=== PATIENT | female | born 1965 | race Caucasian/White ===

== ENCOUNTER 2017-01-17 10:20 | Emergency (ER) | payer OTHER ==
[2017-01-17 11:30] LABS: BILIRUBIN,URINE NEGATIVE (NEGATIVE)
[2017-01-17 11:32] LABS: UA CHARGE (STRIP ONLY) YES; UR CULTURE IF IND NOT INDICATED
[2017-01-17 11:38] LABS: CREATININE 0.8 mg/dL (0.4-1.0); POTASSIUM 3.7 mmol/L (3.5-5.0)
[2017-01-17 12:18] VITALS: BP 152/110
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
== END 2017-01-17 12:30 | disposition home or self-care (01) ==
LOC: ED 10:20
DX: I10 Essential (primary) hypertension (principal)
CPT/HCPCS: 36415; 80048; 81001; 81003; 87086; 99283

== ENCOUNTER 2018-12-03 13:40 | Outpatient (CLI) | payer BC ==
--- NOTE | 2018-12-03 14:18 | XRAY Report ---
Reason: FINGER PAIN,RIGHT Procedure Date: 12/03/2018 Accession Number: [id number] / [id number] Procedure: WCP - Finger(s) RT CPT Code: FULL RESULT: EXAM: RIGHT THIRD DIGIT RADIOGRAPHY EXAM DATE: 12/03/2018 01:55 PM. CLINICAL HISTORY: Finger pain, right. COMPARISON: None. TECHNIQUE: 3 views. FINDINGS: Bones: Comminuted fracture of the proximal aspect of the distal third phalanx with intraarticular extension. Joints: Normal. No subluxations. Soft Tissues: Soft tissue swelling over the dorsal aspect of the distal third ray which extends to the nail bed. IMPRESSION: Comminuted intraarticular fracture of the proximal aspect of the distal third phalanx. Treat as open fracture given the proximity to nail bed. RADIA
== END 2018-12-03 13:41 | disposition home or self-care (01) ==
LOC: DI.WCP 13:40
PROVIDERS: ATTEND Physician Assistant Medical
DX: S62.632A Displaced fracture of distal phalanx of right middle finger, initial encounter for closed fracture (principal)
CPT/HCPCS: 73140

== ENCOUNTER 2019-03-11 14:12 | Outpatient (CLI) | payer BC ==
--- NOTE | 2019-03-12 13:42 | XRAY Report ---
Reason: L FOOT PAIN Procedure Date: 03/11/2019 Accession Number: [id number] / [id number] Procedure: XR - Foot 3 View LT CPT Code: FULL RESULT: EXAM: LEFT FOOT RADIOGRAPHY EXAM DATE: 03/11/2019 02:30 PM. CLINICAL HISTORY: Left foot pain since August. COMPARISON: FOOT 3 VIEW LT 04/08/2014 1:38 PM. TECHNIQUE: 3 views. FINDINGS: Bones: Stable small plantar calcaneal spur. No fractures or bone lesions. Joints: Very mild degenerative disease redemonstrated. No subluxations. Soft Tissues: Normal. No soft tissue swelling. IMPRESSION: No acute abnormality or significant interval change. RADIA
== END 2019-03-11 14:13 | disposition home or self-care (01) ==
LOC: DI 14:12
PROVIDERS: ATTEND Podiatrist
DX: M79.672 Pain in left foot (principal)

== ENCOUNTER 2019-12-23 07:58 | Outpatient (CLI) | payer BC | END 2019-12-23 07:59 | disposition short-term general hospital (02) | LOC: EMS 07:58 | PROVIDERS: ATTEND Surgery | DX: R10.31 Right lower quadrant pain (principal); R10.11 Right upper quadrant pain; R11.0 Nausea | CPT/HCPCS: A0425; A0429 ==

== ENCOUNTER 2019-12-30 14:06 | Outpatient (CLI) | payer BC ==
[2019-12-30 14:40] LABS: ABNORMAL LYMPHS % (MANUAL) 0 %; BAND NEUTROPHILS % (MANUAL) 0 %
[2019-12-30 19:02] LABS: BASOPHILS % (AUTO) 0.7 %; EOSINOPHILS % (AUTO) 3.3 %; HGB - HEMOGLOBIN 13.5 g/dL (12.0-16.0); MEAN CORPUSCULAR HEMOGLOBIN 29.2 pg (27.0-31.0); MEAN CORPUSCULAR HGB CONC 32.5 g/dL (32.0-36.0); MEAN CORPUSCULAR VOLUME 89.8 fL (81.0-99.0); MEAN PLATELET VOLUME 12.1 fL (7.9-10.8); MONOCYTES % (AUTO) 4.8 %; NEUTROPHILS % (AUTO) 61.7 %; PLT - PLATELET COUNT 264 10^3/uL (130-450); RED BLOOD COUNT 4.63 10^6/uL (4.20-5.40); RED CELL DISTRIBUTION WIDTH 13.9 % (12.0-15.0)
[2019-12-30 19:09] LABS: ALBUMIN/GLOBULIN RATIO 1.7 (1.0-2.2); BILIRUBIN,TOTAL 0.6 mg/dL (0.2-1.0); CALCIUM 9.1 mg/dL (8.5-10.3); CREATININE 0.7 mg/dL (0.4-1.0); TOTAL PROTEIN 6.4 g/dL (6.7-8.2)
[2019-12-30 20:13] LABS: BASOPHILS # (MANUAL) 0.1 10^3/uL (0-0.1); BASOPHILS % (MANUAL) 1 %; EOSINOPHILS # (MANUAL) 0.4 10^3/uL (0-0.7); LYMPHOCYTES % (MANUAL) 23 %; MONOCYTES # (MANUAL) 0.6 10^3/uL (0.0-1.0); RBC MORPHOLOGY (MULTIPLE) NORMAL APPEARANCE (NORMAL)
[2019-12-30 20:14] LABS: DIFFERENTIAL COMMENT MANUAL DIFFERENTIAL; PLATELET ESTIMATE, MANUAL NORMAL (130-450,000) (NORMAL); PLATELET MORPHOLOGY NORMAL APPEARANCE (NORMAL)
[2019-12-30 20:16] LABS: WHITE BLOOD COUNT 8.9 x10^3/uL (4.8-10.8)
== END 2019-12-30 23:59 | disposition home or self-care (01) ==
LOC: LAB.WCP 14:06
PROVIDERS: ATTEND Family Medicine
DX: R10.11 Right upper quadrant pain (principal); R16.1 Splenomegaly, not elsewhere classified
CPT/HCPCS: 36415; 80053; 85025

== ENCOUNTER 2020-01-03 07:53 | Outpatient (CLI) | payer BC ==
--- NOTE | 2020-01-04 10:56 | Ultrasound Report ---
PROCEDURE: Abdomen Complete INDICATIONS: RUQ ABD PX, SPLENOMEGALY TECHNIQUE: Real-time scanning was performed of the abdominal and retroperitoneal organs, with image documentatio n. COMPARISON: CT of the abdomen dated 11/07/2007, ultrasound of abdomen dated 11/07/2007. FINDINGS: Liver: Liver is enlarged and measures 21.7 cm in length. Heterogeneous liver parenchymal echotexture is seen. No discrete hepatic lesion. Gallbladder: Mobile and an echogenic focus is seen in dependent portion of gallbladder lumen measures 3 x 1.5 cm in size. No gross gallbladder wall thickening or pericholecystic fluid. No sonographic Mu rphy's sign. Biliary ducts: Intrahepatic bile ducts are non-dilated. Extrahepatic bile duct caliber measures 5 m m. Normal is 6-7 mm or less in diameter, or 10 mm or less post-cholecystectomy. Pancreas: Visualized portions of the pancreas are sonographically normal. Spleen: Spleen is mildly enlarged and measures 13 cm in length. No discrete splenic lesion is seen. Kidneys: Kidneys are normal in size and echotexture. Right kidney measures 10.5 cm long; left kidne y measures 11.9 cm long. No hydronephrosis or nephrolithiasis. No solid masses. 1.4 x 1.2 x 1.1 cm cyst is seen in the lower pole of left kidney. Aorta: Visualized aorta is normal in caliber at less than 3 cm. Iliacs: Proximal common iliac arteries are normal in caliber at less than 2.5 cm. IVC: Intrahepatic inferior vena cava is patent. Miscellaneous: No free abdominal fluid. IMPRESSION: 1. Hepatosplenomegaly. Echogenic liver parenchyma suggestive of hepatic steatosis. No discrete hepati c or splenic lesion. 2. Cholelithiasis, no sonographic evidence of acute cholecystitis. No biliary ductal dilatation. 3. Lower pole left renal cyst. No nephrolithiasis or hydronephrosis. Reviewed by: Mando Lopez MD on 01/04/2020 10:54 AM PDT Approved by: Mando Lopez MD on 01/04/2020 10:54 AM PDT Station ID: [id number]
== END 2020-01-03 07:54 | disposition home or self-care (01) ==
LOC: DI 07:53
PROVIDERS: ATTEND Family Medicine
DX: R16.2 Hepatomegaly with splenomegaly, not elsewhere classified (principal); K80.20 Calculus of gallbladder without cholecystitis without obstruction; N28.1 Cyst of kidney, acquired
CPT/HCPCS: 76700

== ENCOUNTER 2020-03-20 13:58 | Outpatient (CLI) | payer BC ==
--- NOTE | 2020-03-23 12:57 | Mammography Report ---
BILATERAL DIGITAL SCREENING MAMMOGRAM 3D/2D: 03/20/2020 CLINICAL: Routine screening. Comparison is made to exams dated: 06/23/2012 mammogram, 01/23/2011 mammogram, and 09/08/2009 mammogra m - [facility]. There are scattered fibroglandular elements in both breasts. No significant masses, calcifications, or other findings are seen in either breast. There has been no significant interval change. IMPRESSION: NEGATIVE There is no mammographic evidence of malignancy. A 1 year screening mammogram is recommended. This exam was interpreted at Station ID: [id number]. NOTE: For mammograms, a report in lay terms will be sent to the patient. Approximately 15% of breast malignancies will not be visualized mammographically. In the management of a palpable breast mass, a negative mammogram must not discourage biopsy of a clinically suspicious lesion. Electronically Signed By: Malachi Campbell M.D., jr/bee:03/23/2020 11:20:30 ACR BI-RADS Category 1: Negative 3341F PARENCHYMAL PATTERN: (A) - The breast(s) demonstrate(s) scattered fibroglandular densities. BI-RADS CATEGORY: (1) - 1 RECOMMENDATION: (ANNUAL) - Recommend routine annual screening mammography. [id number] 1 year screening LATERALITY: (B)
== END 2020-03-20 13:59 | disposition home or self-care (01) ==
LOC: DI 13:58
PROVIDERS: ATTEND Internal Medicine
DX: Z12.31 Encounter for screening mammogram for malignant neoplasm of breast (principal)
CPT/HCPCS: 77063; 77067

== ENCOUNTER 2022-04-11 03:19 | Outpatient (CLI) | payer BC | END 2022-04-11 03:20 | disposition critical access hospital (66) | LOC: EMS 03:19 | DX: M54.50 Low back pain, unspecified (principal); X50.9XXA Other and unspecified overexertion or strenuous movements or postures, initial encounter | CPT/HCPCS: A0425; A0429 ==

== ENCOUNTER 2022-04-11 03:29 | Emergency (ER) | payer BC ==
[2022-04-11] MEDS ORDERED: methocarbamoL 500 MG TABLET PO STA (04:12)
[2022-04-11] MEDS ORDERED: KETOROLAC 60 MG/2 ML VIAL IM STA (04:12)
--- NOTE | 2022-04-11 04:17 | ED Physician Documentation ---
History of Present Illness - Stated complaint Stated Complaint: BACK PAIN - Chief complaint Chief Complaint: Back Pain - History obtained from History obtained from: Patient - Additonal information Additional information: 36-year-old woman with past medical history of back injury 20 years ago, now healed, presents with left lower back spasm sudden onsetWhile walking with two 4 pound containers down some stairs on Saturday. Patient has had progressive worsening of her back pain despite trying multiple therapies and has been unable to sleep tonight.She states that she is not experiencing any numbness or weakness nor saddle anesthesia however she did get up to try to go to the bathroom and experienced so much pain that she lost control of her urinary bladder. denies midline back pain. pain is spasmodic, constant, located in left lower back, sudden onset, nonradiating, worse with any movement. 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: 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 - Present Medications Home Medications: Ambulatory Orders Medication Instructions Recorded Confirmed SUMAtriptan succinate [Sumatriptan 100 mg PO PRN 01/17/17 Succinate] Ketorolac [Toradol] 10 mg PO Q6H PRN #30 tablet 04/11/22 methocarbamoL [Robaxin] 500 mg PO Q6H #30 tablet 04/11/22 - Allergies Allergies/Adverse Reactions: Allergies Allergy/AdvReac Type Severity Reaction Status Date / Time codeine Allergy Unknown Verified 01/17/17 10:27 morphine Allergy Respiratory Verified 01/17/17 10:27 - Social History Does the pt smoke?: No Smoking Status: Never smoker Does the pt drink ETOH?: No Does the pt have substance abuse?: No - Immunizations Immunizations are current?: No - POLST Patient has POLST: No PD ED PE NORMAL - Vitals Vital signs reviewed: Yes - General General: Alert and oriented X 3, Other (uncomfortable appearing) - HEENT HEENT: Atraumatic, PERRL, EOMI - Neck Neck: No bony TTP - Back Back: No spinal TTP, Other (L lower back discomfort to palpation in muscular distribution) - Derm Derm: Normal color, Warm and dry - Extremities Extremities: Other (BL DP and PT pulses intact. nromal sensation and movement) - Neuro Neuro: No motor deficit, No sensory deficit - Psych Psych: Normal mood, Normal affect Results - Vitals Vitals: Vital Signs - 24 hr 04/11/22 04/11/22 04/11/22 03:37 03:41 03:45 Temperature 37.3 C Heart Rate 76 77 Respiratory 19 19 18 Rate Blood Pressure 186/99 H O2 Saturation 98 98 04/11/22 04/11/22 04/11/22 04:11 05:04 05:08 Temperature Heart Rate 77 68 Respiratory 19 Rate Blood Pressure 176/91 H O2 Saturation 99 95 04/11/22 05:32 Temperature Heart Rate 67 Respiratory 15 Rate Blood Pressure O2 Saturation 98 Oxygen O2 Source Room air PD MEDICAL DECISION MAKING - ED course ED course: 56-year-old woman presents with left lower back strain. Will attempt symptomatic treatment and reevaluate. Departure - Departure Disposition: 01 Home, Self Care Clinical Impression: Back pain Condition: Stable Instructions: ED Low Back Pain Injury Prescriptions: methocarbamoL [Robaxin] 500 mg PO Q6H #30 tablet Ketorolac [Toradol] 10 mg PO Q6H PRN #30 tablet PRN Reason: Pain Comments: You were seen in the emergency department for lower back strain. I am prescribing Robaxin and Toradol and she can take as needed. Remember not to take Toradol with other NSAIDs (aspirin ibuprofen Advil Aleve). Return to the emergency department if you have any new or worsening symptoms or other concerns. Follow-up with your primary doctor.
[2022-04-11 06:23] VITALS: BP 170/88
== END 2022-04-11 06:23 | disposition home or self-care (01) ==
LOC: EDUNIT# → ED 03:29
DX: M54.50 Low back pain, unspecified (principal)
CPT/HCPCS: 96372; 99282; 99283; A9270

== ENCOUNTER 2022-04-24 08:19 | Outpatient (CLI) | payer BC ==
--- NOTE | 2022-04-25 09:09 | Mammography Report ---
BILATERAL DIGITAL SCREENING MAMMOGRAM 3D/2D: 04/24/2022 CLINICAL: Routine screening. Comparison is made to exam dated: 03/20/2020 mammogram - [facility]. There are scattered areas of fibroglandular density in both breasts (category b / 25%-50% glandular t issue). There is a focal asymmetry with an indistinct margin in the left breast at 12 o'clock anterior depth. This is more prominent. There is architectural distortion associated with the focal asymmetry. No other significant masses, calcifications, or other findings are seen in either breast. IMPRESSION: INCOMPLETE: NEEDS ADDITIONAL IMAGING EVALUATION The focal asymmetry in the left breast is indeterminate. Additional views with possible ultrasound are recommended. Based on the Tyrer Cuzick model (a risk assessment model) the patients lifetime risk is 5.7% and her 10 year risk is 1.7%. According to the ACR, ACS, and NCCN guidelines, an annual breast MRI exam javon g with mammogram is recommended if the patients lifetime risk is 20% or greater. This exam was interpreted at Station ID: [id number]. NOTE: For mammograms, a report in lay terms will be sent to the patient. Approximately 15% of breast malignancies will not be visualized mammographically. In the management of a palpable breast mass, a negative mammogram must not discourage biopsy of a clinically suspicious lesion. Electronically Signed By: Akhil Zelaya M.D. slc/:04/24/2022 16:32:54 ACR BI-RADS Category 0: Incomplete 3340F PARENCHYMAL PATTERN: (A) - The breast(s) demonstrate(s) scattered fibroglandular densities. BI-RADS CATEGORY: (0) - 0 Mammo and [place] [id number] Immediate follow-up LATERALITY: (B)
== END 2022-04-24 08:20 | disposition home or self-care (01) ==
LOC: DI 08:19
PROVIDERS: ATTEND Internal Medicine
DX: Z12.31 Encounter for screening mammogram for malignant neoplasm of breast (principal); R92.8 Other abnormal and inconclusive findings on diagnostic imaging of breast

== ENCOUNTER 2022-05-02 09:02 | Outpatient (CLI) | payer BC ==
[2022-05-02 09:15] LABS: BASOPHILS # (AUTO) 0.1 10^3/uL (0.0-0.1); BASOPHILS % (AUTO) 0.7 %; EOSINOPHILS # (AUTO) 0.4 10^3/uL (0.0-0.7); EOSINOPHILS % (AUTO) 4.2 %; HCT - HEMATOCRIT 44.9 % (37.0-47.0); HGB - HEMOGLOBIN 14.2 g/dL (12.0-16.0); LYMPHOCYTES # (AUTO) 2.2 10^3/uL (1.5-3.5); LYMPHOCYTES % (AUTO) 26.8 %; MEAN CORPUSCULAR HEMOGLOBIN 28.1 pg (27.0-31.0); MEAN CORPUSCULAR HGB CONC 31.6 g/dL (32.0-36.0); MEAN CORPUSCULAR VOLUME 88.9 fL (81.0-99.0); MEAN PLATELET VOLUME 11.1 fL (7.9-10.8); MONOCYTES # (AUTO) 0.5 10^3/uL (0.0-1.0); MONOCYTES % (AUTO) 5.5 %; NEUTROPHILS # (AUTO) 5.2 10^3/uL (1.5-6.6); NEUTROPHILS % (AUTO) 62.6 %; PLT - PLATELET COUNT 269 10^3/uL (130-450); RED BLOOD COUNT 5.05 10^6/uL (4.20-5.40); RED CELL DISTRIBUTION WIDTH 13.5 % (12.0-15.0); WHITE BLOOD COUNT 8.3 x10^3/uL (4.8-10.8)
[2022-05-02 09:34] LABS: CREATININE,URINE 86.7 mg/dL; MICROALBUM/CREATININE RATIO,UR 21.9 ug/mg (<30.0); MICROALBUMIN,URINE 1.9 mg/dL (0-300.0)
[2022-05-02 09:50] LABS: ALBUMIN 4.1 g/dL (3.2-5.5); ALBUMIN/GLOBULIN RATIO 1.4 (1.0-2.2); ALKALINE PHOSPHATASE 75 IU/L (42-121); ALT ALANINE AMINOTRANSFERASE 25 IU/L (10-60); AST ASPARTATE AMINOTRANSFERASE 23 IU/L (10-42); BILIRUBIN,TOTAL 0.9 mg/dL (0.2-1.0); BUN - BLOOD UREA NITROGEN 12 mg/dL (6-20); CALCIUM 9.3 mg/dL (8.5-10.3); CARBON DIOXIDE - CO2 32 mmol/L (21-32); CHLORIDE 103 mmol/L (101-111); CHOL/HDL RATIO 4.3 (<4.4); CHOLESTEROL 252 mg/dL; CREATININE 0.7 mg/dL (0.4-1.0); GFR - MDRD 87 (>89); GLUCOSE 95 mg/dL (70-100); HDL CHOLESTEROL 58 mg/dL; LDL CHOLESTEROL,CALCULATED 167 mg/dL; LDL/HDL RATIO 2.9 (<4.4); POTASSIUM 3.7 mmol/L (3.5-5.0); SODIUM 142 mmol/L (135-145); TOTAL PROTEIN 7.1 g/dL (6.7-8.2); TRIGLYCERIDES 136 mg/dL; VLDL CHOLESTEROL 27 mg/dL
[2022-05-02 09:56] LABS: THYROID STIMULATING HORMONE 1.37 uIU/mL (0.34-5.60)
[2022-05-02 10:24] LABS: FOLLICLE STIMULATING HORMONE 25.63 mIU/mL
[2022-05-02 10:25] LABS: LUTEINIZING HORMONE 14.03 mIU/mL
[2022-05-02 12:18] LABS: ESTIMATED AVERAGE GLUCOSE 108 mg/dL (70-100); HEMOGLOBIN A1c% 5.4 % (4.27-6.07)
== END 2022-05-02 09:03 | disposition home or self-care (01) ==
LOC: LAB 09:02
PROVIDERS: ATTEND Internal Medicine
DX: E04.1 Nontoxic single thyroid nodule (principal); G43.909 Migraine, unspecified, not intractable, without status migrainosus; R73.01 Impaired fasting glucose; Z13.220 Encounter for screening for lipoid disorders; Z78.0 Asymptomatic menopausal state
CPT/HCPCS: 36415; 80053; 80061; 82043; 82570; 83001; 83002; 83036; 83721; 84443; 85025

== ENCOUNTER 2022-05-11 12:29 | Outpatient (CLI) | payer BC ==
--- NOTE | 2022-05-14 09:39 | Ultrasound Report ---
LIMITED ULTRASOUND OF LEFT BREAST: 05/11/2022 CLINICAL: Patient returns today to evaluate a focal asymmetry in the left breast. Comparison is made to exams dated: 05/11/2022 mammogram, 04/24/2022 mammogram, 03/20/2020 mammogram, 1 08/24/2011 mammogram, 01/23/2011 mammogram, and 09/08/2009 mammogram - [facility]. Color flow and real-time ultrasound of the left breast 12 o'clock region were performed on the areas of interest. Hawk scale images of the real-time examination were reviewed. There focal asymmetry in the left breast at 12 o'clock is not seen by ultrasound. This is more consp icuous than on prior mammograms. IMPRESSION: SUSPICIOUS OF MALIGNANCY Focal asymmetry in the left breast, increased in prominence from prior exams. Stereotactic biopsy re commended. This was discussed with the patient by the radiologist Dr. Josue at the time of the study. This exam was interpreted at Station ID: [id number]. Electronically Signed By: Alisia Egan M.D. lk/:05/11/2022 14:29:01 Ultrasound BI-RADS: 4a Low suspicion for malignancy BI-RADS CATEGORY: (4a) - Low Susp Biopsy follow-up [id number] Immediate follow-up LATERALITY: (B)
--- NOTE | 2022-05-14 09:39 | Mammography Report ---
UNILATERAL LEFT DIGITAL DIAGNOSTIC MAMMOGRAM 3D/2D WITH SPOT COMPRESSION: 05/11/2022 CLINICAL: Patient returns today to evaluate a focal asymmetry in the left breast. Comparison is made to exams dated: 04/24/2022 mammogram, 03/20/2020 mammogram, 06/23/2012 mammogram, mammogram, and 01/23/2011 mammogram - [facility]. There are scattered areas of fibroglandular density in the left breast (category b / 25%-50% glandula r tissue). There is a focal asymmetry in the left breast at 12 o'clock anterior depth. There is architectural d istortion associated with the focal asymmetry. No other significant masses or calcifications are seen in the breast. IMPRESSION: INCOMPLETE: NEEDS ADDITIONAL IMAGING EVALUATION The focal asymmetry in the left breast is indeterminate. A targeted ultrasound of the left breast is recommended and will be performed immediately following this exam. Based on the Tyrer Cuzick model (a risk assessment model) the patients lifetime risk is 5.7% and her 10 year risk is 1.7%. According to the ACR, ACS, and NCCN guidelines, an annual breast MRI exam javon g with mammogram is recommended if the patients lifetime risk is 20% or greater. This exam was interpreted at Station ID: [id number]. NOTE: For mammograms, a report in lay terms will be sent to the patient. Approximately 15% of breast malignancies will not be visualized mammographically. In the management of a palpable breast mass, a negative mammogram must not discourage biopsy of a clinically suspicious lesion. Electronically Signed By: Alisia trinidad/:05/11/2022 14:19:10 ACR BI-RADS Category 0: Incomplete 3340F PARENCHYMAL PATTERN: (A) - The breast(s) demonstrate(s) scattered fibroglandular densities. BI-RADS CATEGORY: (0) - 0 Ultrasound [id number] Immediate follow-up LATERALITY: (B)
== END 2022-05-11 12:30 | disposition home or self-care (01) ==
LOC: DI 12:29
PROVIDERS: ATTEND Internal Medicine
DX: R92.8 Other abnormal and inconclusive findings on diagnostic imaging of breast (principal)

== ENCOUNTER 2022-05-29 08:20 | Outpatient (CLI) | payer BC ==
[~2022-05-29 08:20] MED LIST: LIDOCAINE 1%-EPI 1:100000 20 ML MDV ONE; lidocaine 1% 20 ML MDV ONE
[2022-05-29] MEDS ORDERED: lidocaine 1% 20 ML MDV SUBQ ONE (10:44)
[2022-05-29] MEDS ORDERED: LIDOCAINE 1%-EPI 1:100000 20 ML MDV SUBQ ONE (10:48)
--- NOTE | 2022-06-04 10:08 | Mammography Report ---
DIGITAL TOMOGRAPHIC MAMMOGRAPHY GUIDED STEREOTACTIC GUIDED BIOPSY LEFT BREAST USING VACUUM DEVICE WIT H MARKING DEVICE INSERTED: 05/29/2022 CLINICAL: Post left breast stereotactic biopsy, clip placement imaging. Correlation is made to exams dated: 05/11/2022 mammogram, 04/24/2022 mammogram, 03/20/2020 mammogram, 06/23/2012 mammogram, and 01/23/2011 mammogram - [facility]. A stereotactic guided biopsy was performed for the focal asymmetry located in the left breast at 12 o 'clock anterior depth. This was described on the previous mammography report. The skin was prepped in the usual manner. Local anesthetic was administered to the access site. A s mall incision was made in the breast. The abnormality was approached from the craniocaudal aspect us ing an upright digital tomographic mammography unit. A 9 gauge biopsy needle was placed adjacent to the abnormality under computer guidance and confirmatory stereotactic mammography images were obtaine d to document needle placement. Once the needle was documented to be in the correct location, a spec imen was obtained using a vacuum assisted device. A clip was inserted into the biopsy cavity. A skin closure strip and a sterile dressing were applied to the access site. Post procedure imaging demonstrates the location device at the targeted area. The specimen was sent to the laboratory for pathological analysis. IMPRESSION: STEREOTACTIC GUIDED BIOPSY BENIGN Stereotactic guided biopsy of the focal asymmetry in the left breast at 12 o'clock anterior depth was successful with no apparent post procedure complications. Pathology indicates benign fibrofatty breast tissue. Pathology results are concordant with imaging f indings. A follow-up mammogram in 6 months is recommended. This exam was interpreted at Station ID: [id number]. Malachi Zelaya M.D., jr,slc/:06/04/2022 08:20:53 BI-RADS CATEGORY: () - Mammogram [id number] 6 month follow-up LATERALITY: (B)
== END 2022-05-29 08:21 | disposition home or self-care (01) ==
LOC: DI 08:20
PROVIDERS: ATTEND Internal Medicine
DX: R92.8 Other abnormal and inconclusive findings on diagnostic imaging of breast (principal)
CPT/HCPCS: 19081

== ENCOUNTER 2022-07-06 17:11 | Outpatient (CLI) | payer BC ==
--- NOTE | 2022-07-06 18:12 | Ultrasound Report ---
PROCEDURE: Head or Neck Soft Tissue INDICATIONS: THYROID NODULE TECHNIQUE: Real-time scanning was performed of the thyroid gland, with image documentation. COMPARISON: 01/17/2016 FINDINGS: Right: Thyroid lobe measures 5.6 x 2.1 x 2.6 cm, and is heterogeneous in echotexture. Left: Thyroid lobe measures 3.9 x 1 x 1.3 cm, and is heterogeneous in echotexture. Isthmus: 2 mm thick. Nodule number: One Location: Upper to midpole right thyroid lobe Size: 3.6 x 2 x 2.5 cm, previously 3.5 x 2.3 x 1.9 cm. Composition: Mixed solid, cystic and spongiform. Echogenicity: Isoechoic Shape: wider than tall. Margins: Smooth Echogenic foci: Macrocalcifications are seen. Total points: 4 ACR TI-RADS category: Moderately suspicious Nodule number: Two Location: Upper pole left thyroid lobe Size: 0.5 cm. New since previous study Composition: Solid Echogenicity: Hypoechoic Shape: wider than tall. Margins: Smooth Echogenic foci: None Total points: 4 ACR TI-RADS category: Moderately suspicious. Benign-appearing lymph nodes are seen in bilateral neck soft tissue. IMPRESSION: 1. Patient's known heterogeneous echotexture nodule in right thyroid lobe is unchanged in size and ap pearance. Consider fine-needle aspiration of this nodule based on the size if not previously performe d. 2. Interval development of a 5 mm moderately suspicious nodule in upper pole of left thyroid lobe. Ul trasound follow-up is recommended. ACR TI-RADS definitions and recommendations: TI-RADS 1 (benign): 0 points. FNA not needed. TI-RADS 2 (not suspicious): 2 points. FNA not needed. TI-RADS 3 (mildly suspicious): 3 points. "FNA if 2.5 cm or larger, follow up if 1.5 cm or larger (at 1, 3, and 5 years). TI-RADS 4 (moderately suspicious): 4-6 points. "FNA if 1.5 cm or larger, follow up if 1 cm or larger (at 1, 2, 3, and 5 years). TI-RADS 5 (highly suspicious): 7 points or more. "FNA if 1 cm or larger, follow up if 0.5 cm or larger (every year for 5 years). Reviewed by: Mando Steve MD on 07/06/2022 6:10 PM PST Approved by: Mando Steve MD on 07/06/2022 6:10 PM PST Station ID: [id number]
== END 2022-07-06 17:12 | disposition home or self-care (01) ==
LOC: DI 17:11
PROVIDERS: ATTEND Internal Medicine
DX: E04.2 Nontoxic multinodular goiter (principal)

== ENCOUNTER 2022-12-19 08:18 | Outpatient (CLI) | payer BC ==
--- NOTE | 2022-12-20 10:54 | Mammography Report ---
UNILATERAL LEFT DIGITAL DIAGNOSTIC MAMMOGRAM 3D/2D: 12/19/2022 CLINICAL: Patient returns for a 6 month follow up of the left breast. Comparison is made to exams dated: 05/29/2022 stereotactic biopsy, 05/11/2022 mammogram, 04/24/2022 mammogram, and 03/20/2020 mammogram - [facility]. There are scattered areas of fibroglandular density in the left breast (category b / 25%-50% glandula r tissue). There is developing architectural distortion in the left breast central to the nipple anterior depth. This is more prominent. No other significant masses or calcifications are seen in the breast. IMPRESSION: INCOMPLETE: NEEDS ADDITIONAL IMAGING EVALUATION The developing architectural distortion in the left breast is indeterminate. An ultrasound is recomm ended. Based on the Tyrer Cuzick model (a risk assessment model) the patients lifetime risk is 5.7% and her 10 year risk is 1.8%. According to the ACR, ACS, and NCCN guidelines, an annual breast MRI exam javon g with mammogram is recommended if the patients lifetime risk is 20% or greater. This exam was interpreted at Station ID: [id number]. NOTE: For mammograms, a report in lay terms will be sent to the patient. Approximately 15% of breast malignancies will not be visualized mammographically. In the management of a palpable breast mass, a negative mammogram must not discourage biopsy of a clinically suspicious lesion. Electronically Signed By: Renato Morris M.D. lc/:12/19/2022 09:26:40 ACR BI-RADS Category 0: Incomplete 3340F PARENCHYMAL PATTERN: (A) - The breast(s) demonstrate(s) scattered fibroglandular densities. BI-RADS CATEGORY: (0) - 0 Ultrasound [id number] Immediate follow-up LATERALITY: (B)
--- NOTE | 2022-12-20 10:54 | Ultrasound Report ---
LIMITED ULTRASOUND OF LEFT BREAST AND AXILLA: 12/19/2022 CLINICAL: Patient returns today to evaluate an asymmetry in the left breast. Comparison is made to exams dated: 12/19/2022 mammogram, 05/29/2022 stereotactic biopsy, 05/11/2022 ul trasound, 05/11/2022 mammogram, 04/24/2022 mammogram, and 03/20/2020 mammogram - [facility]. Color flow ultrasound of the left breast 1-3 o'clock, and axilla regions was performed. Hawk scale images of the real-time examination were reviewed. There is a 0.9 cm x 0.8 cm x 0.9 cm irregular mass with a spiculated margin in the left breast at 3 o 'clock anterior depth 3 cm from the nipple. This abnormality is more prominent and correlates with m ammography findings. There is associated architectural distortion. No significant abnormalities were seen sonographically in the left axilla. IMPRESSION: HIGHLY SUGGESTIVE OF MALIGNANCY The 0.9 cm x 0.8 cm x 0.9 cm irregular mass in the left breast is highly suggestive of malignancy. A n ultrasound guided biopsy is recommended. No significant abnormalities were seen sonographically in the left axilla. This exam was interpreted at Station ID: [id number]. Electronically Signed By: Renato Morris M.D. lc/:12/19/2022 09:29:08 Ultrasound BI-RADS: 5 Highly suggestive of malignancy BI-RADS CATEGORY: (5) - 5 Biopsy follow-up [id number] Immediate follow-up LATERALITY: (B)
== END 2022-12-19 08:19 | disposition home or self-care (01) ==
LOC: DI 08:18
PROVIDERS: ATTEND Internal Medicine
DX: N63.25 Unspecified lump in the left breast, overlapping quadrants (principal)

== ENCOUNTER 2022-12-27 12:52 | Outpatient (CLI) | payer BC ==
[2022-12-27] MEDS ORDERED: LIDOCAINE 1%-EPI 1:100000 20 ML MDV ONE (13:10)
[2022-12-27] MEDS ORDERED: LIDOCAINE-MPF 1% 5 ML VIAL ONE (13:10)
[2022-12-27] MEDS ORDERED: LIDOCAINE-MPF 1% 5 ML VIAL TD ONE (14:31)
[2022-12-27] MEDS ORDERED: LIDOCAINE 1%-EPI 1:100000 20 ML MDV SUBQ ONE (14:32)
--- NOTE | 2022-12-28 11:30 | Mammography Report ---
UNILATERAL LEFT DIGITAL DIAGNOSTIC MAMMOGRAM POST-PROCEDURE IMAGING FOR MARKER PLACEMENT: 12/27/2022 CLINICAL: Post left breast ultrasound biopsy clip placement imaging. Comparison is made to exams dated: 12/19/2022 mammogram, 05/29/2022 stereotactic biopsy, 05/11/2022 ma mmogram, 04/24/2022 mammogram, 03/20/2020 mammogram, and 06/23/2012 mammogram - [facility]. There are scattered areas of fibroglandular density in the left breast (category b / 25%-50% glandula r tissue). There is a marker clip in the appropriate position in the left breast at 3 o'clock anterior depth. T his marker clip placement is at the biopsy site. IMPRESSION: POST PROCEDURE MAMMOGRAM FOR MARKER PLACEMENT There was a successful marker clip placement in the left breast anterior depth. Based on the Tyrer Cuzick model (a risk assessment model) the patients lifetime risk is 5.7% and her 10 year risk is 1.8%. According to the ACR, ACS, and NCCN guidelines, an annual breast MRI exam javon g with mammogram is recommended if the patients lifetime risk is 20% or greater. This exam was interpreted at Station ID: [id number]. NOTE: For mammograms, a report in lay terms will be sent to the patient. Approximately 15% of breast malignancies will not be visualized mammographically. In the management of a palpable breast mass, a negative mammogram must not discourage biopsy of a clinically suspicious lesion. Electronically Signed By: Mando andrews/penrad:12/28/2022 08:46:57 ACR BI-RADS Category Post-procedure mammogram for marker placement PARENCHYMAL PATTERN: (A) - The breast(s) demonstrate(s) scattered fibroglandular densities. BI-RADS CATEGORY: () - Unspecified - other recall n/a LATERALITY: (B)
--- NOTE | 2023-01-01 09:07 | Ultrasound Report ---
ULTRASOUND GUIDED BIOPSY LEFT BREAST USING VACUUM DEVICE WITH MARKING DEVICE INSERTED AND POST DIGITA L MAMMOGRAPHIC IMAGIN12/27/2022 CLINICAL: Left breast mass. PATIENT CONSENT: Risks (minor bleeding, infection, vasovagal reaction and repeat procedure), benefits and alternatives were explained to the patient and written informed consent was obtained. Correlation is made to exams dated: 12/19/2022 ultrasound, 12/19/2022 mammogram, 05/11/2022 ultrasound, 05/11/2022 mammogram, 04/24/2022 mammogram, and 03/20/2020 mammogram - [facility]. An ultrasound guided biopsy using real-time ultrasound was performed for the irregular shaped asymmet ry located in the left breast at 3 o'clock middle depth. This was described on the previous ultrasou nd report. The skin was prepped in the usual manner. Local anesthetic was administered to the acces s site. A small incision was made in the breast. The abnormality was approached from the lateral as pect. A biopsy needle was placed adjacent to the abnormality under ultrasound guidance. Once the ne edle was documented to be in the correct location, four specimens were obtained using the Mammotome b iopsy system. The patient received additional local anesthetic during the procedure. A clip was ins erted into the biopsy cavity. A skin adhesive was applied to the access site. Post procedure digita l mammographic imaging demonstrates the location device at the targeted area. The specimens were sen t to the laboratory for pathological analysis. IMPRESSION: ULTRASOUND GUIDED BIOPSY HIGH RISK BENIGN Ultrasound guided biopsy of the asymmetry in the left breast at 3 o'clock middle depth was successful with no apparent post procedure complications. Pathology indicates high risk benign usual florid hy perplasia, fibrocystic changes, and sclerosing adenosis. Pathology results are concordant with imagi ng findings. A follow-up left mammogram and an ultrasound in 6 months is recommended to demonstrate stability. Results and recommendations will be communicated to the ordering provider's office. This exam was interpreted at Station ID: [id number]. cipriano Pierson M.D., M.D./:12/31/2022 09:53:27 BI-RADS CATEGORY: () - Mammo and [place] [id number] 6 month follow-up LATERALITY: (L)
== END 2022-12-27 12:53 | disposition home or self-care (01) ==
LOC: DI 12:52
PROVIDERS: ATTEND Internal Medicine
DX: N60.12 Diffuse cystic mastopathy of left breast (principal); N60.22 Fibroadenosis of left breast; N62 Hypertrophy of breast
CPT/HCPCS: 19083

== ENCOUNTER 2023-03-25 08:05 | Day surgery (SDC) | payer BC ==
[~2023-03-25 08:05] MED LIST changes: +ACETAMINOPHEN 500 MG TABLET PO ONE; -LIDOCAINE 1%-EPI 1:100000 20 ML MDV ONE; +ceFAZolin 2 GM VIAL ONE; -lidocaine 1% 20 ML MDV ONE
[2023-03-25] MEDS ORDERED: CELECOXIB 100 MG CAPSULE PO ONE (08:15)
[2023-03-25] MEDS ORDERED: LIDOCAINE-MPF 1% 5 ML VIAL ONE (08:30)
[2023-03-25] MEDS ORDERED: LIDOCAINE 1%-EPI 1:100000 50 ML VIAL ONE (08:30)
[2023-03-25] MEDS ORDERED: LIDOCAINE 1%-EPI 1:100000 20 ML MDV ONE (09:24)
[2023-03-25] MEDS ORDERED: BUPIVACAINE 0.5% PF 10 ML VIAL ONE (09:24)
[2023-03-25] MEDS ORDERED: ONDANSETRON 4 MG/2 ML VIAL IVP PRN ×2 (09:48→11:51)
[2023-03-25] MEDS ORDERED: NALOXONE 0.4 MG/ML VIAL IVP PRN (09:48)
[2023-03-25] MEDS ORDERED: ePHEDrine 50 MG/ML VIAL IVP PRN (09:48)
[2023-03-25] MEDS ORDERED: METOCLOPRAMIDE 10 MG/2 ML VIAL IVP PRN (09:48)
[2023-03-25] MEDS ORDERED: ATROPINE ABBOJECT 1 MG/10 ML SYRINGE IVP PRN (09:48)
[2023-03-25] MEDS: LIDOCAINE-MPF 1% 5 ML VIAL TD ONE (09:48)
[2023-03-25] MEDS ORDERED: fentaNYL 100 MCG/2 ML VIAL IVP PRN (09:48)
--- NOTE | 2023-03-25 09:48 | ANESTHESIA ---
Pre-Anesthesia VS, & Labs - Diagnosis imaging pathology discordance - Procedure L breast wire localized excisional biopsy Vital Signs: Temp Pulse Resp BP Pulse Ox O2 Flow Rate 36. C L 65 18 180/90 H 96 03/25/23 08:23 03/25/23 08:23 03/25/23 08:23 03/25/23 08:23 03/25/23 08:23 Height: 5 ft 8 in Weight (kg): 124 kg Body Mass Index: 41.5 BMI Classification: Morbidly Obese - NPO >8 hours - Is Patient ?: No - Lab Results Lab results reviewed: Yes Home Medications and Allergies SUMAtriptan succinate [Sumatriptan Succinate] 100 mg PO ONCE 01/17/17 Allergies/Adverse Reactions: Allergies Allergy/AdvReac Type Severity Reaction Status Date / Time codeine Allergy Unknown Verified 03/15/23 14:17 morphine Allergy Respiratory Verified 01/17/17 10:27 Anes History & Medical History - Anesthetic History Anesthesia Complications: reports: No previous complications Family history of Anesthesia Complications: Denies Family history of Malignant Hyperthermia: Denies - Medical History Cardiovascular: reports: None Pulmonary: reports: None Gastrointestinal: reports: None Urinary: reports: None Neuro: reports: None, Other (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, 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 event) Musculoskeletal: reports: Chronic back pain Endocrine/Autoimmune: reports: Other Blood Disorders: reports: None Skin: reports: None Smoking Status: Never smoker Psychosocial: reports: No issues indicated History of Cancer?: No - Surgical History General: reports: Other Eyes Ears Nose Throat (EENT): reports: Tonsil/Adenoidectomy Gynecologic: reports: 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, Breast reduction Orthopedic: reports: Other Exam General: Alert, Oriented x3, Cooperative Dental: WNL Mouth Openin Fingerbreadth Neck Mobility: Normal Mallampati classification: II Thyromental Distance: 4-6 cm Respiratory: Lungs clear, Normal breath sounds, No respiratory distress Cardiovascular: Regular rate Neurological: Normal speech Mental/Cognitive Status: Alert/Oriented X3, Normal for patient Cognitive Status: Within normal limits Plan Anesthesia Type: General Consent for Procedure(s) Verified and Reviewed: Yes Code Status: Attempt Resuscitation ASA classification: 3-Severe systemic disease Is this case an emergency?: No
[2023-03-25] MEDS ORDERED: LACTATED RINGERS 1,000 ML IV SCH (10:00)
[2023-03-25] MEDS ORDERED: fentaNYL 100 MCG/2 ML VIAL ONE (10:01)
[2023-03-25] MEDS ORDERED: MIDAZOLAM 2 MG/2 ML VIAL ONE (10:09)
[2023-03-25] MEDS ORDERED: PROPOFOL 500 MG/50 ML 500 MG/50 ML VIAL ONE ×2 (10:35→11:15)
[2023-03-25] MEDS ORDERED: ONDANSETRON 4 MG/2 ML VIAL ONE (10:35)
[2023-03-25] MEDS ORDERED: DEXAMETHASONE 4 MG/ML VIAL ONE (10:35)
[2023-03-25] MEDS ORDERED: LIDOCAINE MPF 2%-EPI 1:200000 20 ML VIAL SUBQ ONE ×2 (10:39)
[2023-03-25] MEDS ORDERED: BUPIVACAINE 0.5% PF 30 ML VIAL SUBQ ONE ×2 (10:40)
[2023-03-25] MEDS ORDERED: ceFAZolin 1 GM VIAL ONE (10:42)
[2023-03-25] MEDS ORDERED: ePHEDrine 50 MG/ML VIAL IVP ONE (11:07)
[2023-03-25] MEDS ORDERED: SUCCINYLCHOLINE 200 MG/10 ML VIAL ONE (11:15)
[2023-03-25] MEDS ORDERED: HYDROmorphone 0.5 MG/0.5 ML SYRINGE IVP PRN (11:51)
[2023-03-25] MEDS ORDERED: oxyCODONE 5 MG TABLET PO PRN (11:51)
[2023-03-25] MEDS ORDERED: ACETAMINOPHEN 500 MG TABLET PO PRN (11:51)
--- NOTE | 2023-03-25 11:54 | OPERATIVE REPORT ---
Operative Report - General Procedure Date: 03/25/23 Planned Procedure: left breast excisional biopsy with wire localization Pre-Op Diagnosis: discordant imaging and biopsy findings Procedure Performed: left breast excisional biopsy with wire localization Post Op Diagnosis: discordant imaging and biopsy findings - Procedure Note Primary Surgeon: Mihaela Haley MD Anesthesia Provider: Ruben Martino CRNA Anesthesia Technique: General LMA, Local Pathology: 1. left breast excisional biopsy, oriented short superior, long lateral, double anterior Estimated Blood Loss (mL): 5 Indications: The patient has had 2 abnormal mammograms in the last year. She has had 2 biopsies that were benign. Her most recent biopsy was of an area given a BI- RADS 5. The biopsy findings were felt to be discordant with imaging and excisional biopsy was recommended. She was seen and evaluated in the clinic where we discussed the risks, benefits, and alternatives of excisional biopsy including bleeding, infection, damage to surrounding structures, numbness in the area, upstaging of the lesion, and the need for further surgeries or procedures. The patient voiced understanding, her questions were answered, and she wished to proceed. A consent was signed by the patient prior to surgery. Findings: 1. wire localized excisional biopsy of left breast, oriented short superior, long lateral, double anterior 2. clip in specimen on specimen mammogram Complications: none - Other Other Information/Narrative: The patient was taken to the operating room and placed in the supine position. Preop antibiotics were given. ERAS medications were given. The patient was prepped and draped in the usual sterile fashion. A preop surgical timeout was performed. Attention was turned to the patient's left breast. An periareolar incision was made from the 12:00 to 3 o'clock position. A skin flap was raised superiorly to the incision, and the wire was integrated into the incision. The dissection was carried down to the thick part of the wire using electrocautery. At this point, serrated scissors were used to perform a lumpectomy staying approximately 2 cm medial, 2 cm inferior, and 1 cm posterior to the wire. The lumpectomy specimen was removed and oriented with suture on the back table. The specimen was sent to mammography and the biopsy clip was confirmed to be within the specimen.The edges of the lumpectomy cavity were inspected and there were no palpable abnormalities. Hemostasis was confirmed. The lumpectomy cavity was irrigated with warm normal saline. Clips were placed in the superior, inferior, medial, lateral, anterior, and posterior margins of the lumpectomy cavity. Next, the deep dermal tissues were closed with 3-0 Vicryl in an interrupted fas hion. The skin was closed with 4-0 Monocryl in a running subcuticular fashion. The patient tolerated the procedure well. There were no complications. All needle and soft counts were correct at the end of the case. The patient was transferred to the recovery room in stable condition.
[2023-03-25] MEDS ORDERED: LACTATED RINGERS 1,000 ML IV ONE (11:55)
--- NOTE | 2023-03-25 12:54 | ANESTHESIA POST OP EVALUATION ---
Anesthesia Post Eval - Post Anesthesia Eval Vitals: Last Vital Signs Temp 36 C L 03/25/23 12:40 Pulse 65 03/25/23 12:40 Resp 15 03/25/23 12:40 BP 144/91 H 03/25/23 12:40 Pulse Ox 92 03/25/23 12:40 O2 Flow Rate CV Function Including HR & BP: Stable Pain Control: Satisfactory Nausea & Vomiting: Negative Mental Status: Baseline Respiratory Status: Airway Patent Hydration Status: Satisfactory Anesthesia Complications: None
[2023-03-25 13:14] VITALS: BP 151/98; O2SAT 95
--- NOTE | 2023-04-01 15:55 | Mammography Report ---
NEEDLE LOCALIZATION LEFT BREAST- - LEFT BREAST POST-PROCEDURE IMAGING FOR MARKER PLACEMENT: 03/25/2023 CLINICAL: Left breast wire localization. Correlation is made to exams dated: 12/27/2022 mammogram, 12/19/2022 mammogram, and 05/11/2022 mammogra [facility]. A needle localization was performed for the abnormality located in the left breast at 2 o'clock anter ior depth. The skin was prepped in the usual manner. A needle was inserted into the targeted area. IMPRESSION: NEEDLE LOCALIZATION Needle localization for the abnormality in the left breast at 2 o'clock anterior depth was performed. Future imaging is recommended as follows: 06/28/2023 left mammogram and an ultrasound. This exam was interpreted at Station ID: [id number]. Dano maya/:04/01/2023 10:27:06 BI-RADS CATEGORY: () - Unspecified - other recall n/a LATERALITY: (B)
--- NOTE | 2023-04-01 15:55 | Mammography Report ---
SPECIMEN LEFT BREAST: 03/25/2023 CLINICAL: Left breast specimen. Correlation is made to exam dated: 03/25/2023 localization - [facility]. A specimen was imaged for the abnormality located in the left breast at 2 o'clock anterior depth. T he localization clip is within the specimen. IMPRESSION: SPECIMEN The imaged specimen includes the localization clip. Future imaging is recommended as follows: 06/28/2023 left mammogram and an ultrasound. This exam was interpreted at Station ID: [id number]. Dano maya/:04/01/2023 10:28:07 BI-RADS CATEGORY: () - Unspecified - other recall n/a LATERALITY: (B)
== END 2023-03-25 08:06 | disposition home or self-care (01) ==
LOC: SDS 08:05
PROVIDERS: ATTEND Surgery
PROC: 0HBU0ZZ Excision of Left Breast, Open Approach (ICD-10-PCS; principal; 2023-03-25 10:30)
DX: N60.12 Diffuse cystic mastopathy of left breast (principal); N64.89 Other specified disorders of breast; E66.01 Morbid (severe) obesity due to excess calories; Z68.41 Body mass index [BMI] 40.0-44.9, adult
CPT/HCPCS: 19125; 19281; 76098; A9270; J0330; J7120

== ENCOUNTER 2023-05-16 10:23 | Outpatient (CLI) | payer BC ==
--- NOTE | 2023-05-16 16:48 | XRAY Report ---
PROCEDURE: Knee 3 View LT INDICATIONS: KNEE PAIN,LEFT TECHNIQUE: 3 views of the knee(s) were acquired. COMPARISON: None. FINDINGS: Bones: No fractures or dislocations. No suspicious bony lesions. Mild tricompartmental periarticu lar osteophyte formation. Soft tissues: No knee joint effusion. No suspicious soft tissue calcifications or masses. IMPRESSION: Osteoarthritis. No acute fracture. No osseous lesion. If symptoms and/or clinical suspicion for patho logy continue, further assessment with repeat plain films, or advanced imaging (e.g., CT, MRI, or bon e scan) is recommended for further assessment. Reviewed by: Dano Townsend MD on 05/16/2023 4:47 PM PDT Approved by: Dano Townsend MD on 05/16/2023 4:47 PM PDT Station ID: [id number]
--- NOTE | 2023-05-16 16:48 | XRAY Report ---
PROCEDURE: Lumbar Spine Complete INDICATIONS: MERALGIA PARESTHETICA TECHNIQUE: 3 views of the lumbar spine were acquired. COMPARISON: None. FINDINGS: Bones: 5 [id number] vertebrae are present. Multilevel disc space narrowing and endplate osteop hyte formation, as well as facet hypertrophy. Roughly 4 mm of anterolisthesis of L4 on L5. There is n ormal bony alignment. No vertebral body compression fractures. No suspicious bony lesions. Soft tissues: Overlying bowel gas pattern is normal. No suspicious soft tissue calcifications. IMPRESSION: Multilevel degenerative disc and facet disease. No acute fracture. No osseous lesion. If symptoms and/or clinical suspicion for pathology continue, further assessment with repeat plain films , or advanced imaging (e.g., CT, MRI, or bone scan) is recommended for further assessment. Reviewed by: Dano Townsend MD on 05/16/2023 4:47 PM PDT Approved by: Dano Townsend MD on 05/16/2023 4:47 PM PDT Station ID: [id number]
--- NOTE | 2023-05-16 16:48 | XRAY Report ---
PROCEDURE: Hip w/Pelvis 2-3V LT INDICATIONS: KNEE PAIN,LEFT TECHNIQUE: AP pelvis with lateral view(s) of the left hip(s). COMPARISON: None. FINDINGS: Bones: No fractures or dislocations. No suspicious bony lesions. Mild joint space narrowing and p eriarticular osteophyte formation at the bilateral hip joints. Soft tissues: No suspicious soft tissue calcifications or masses. IMPRESSION: Bilateral hip osteoarthritis. No acute fracture. No osseous lesion. If symptoms and/or clinical suspi cion for pathology continue, further assessment with repeat plain films, or advanced imaging (e.g., C T, MRI, or bone scan) is recommended for further assessment. Reviewed by: Dano Townsend MD on 05/16/2023 4:47 PM PDT Approved by: Dano Townsend MD on 05/16/2023 4:47 PM PDT Station ID: [id number]
== END 2023-05-16 10:24 | disposition home or self-care (01) ==
LOC: DI 10:23
PROVIDERS: ATTEND Physician Assistant
DX: M47.816 Spondylosis without myelopathy or radiculopathy, lumbar region (principal); M51.36 Other intervertebral disc degeneration, lumbar region; M17.12 Unilateral primary osteoarthritis, left knee; M16.0 Bilateral primary osteoarthritis of hip

== ENCOUNTER 2023-08-05 09:17 | Outpatient (CLI) | payer BC ==
--- NOTE | 2023-08-05 20:13 | XRAY Report ---
PROCEDURE: Foot 3+V BL (Weight Bearing) INDICATIONS: BILATERAL FOOT PAIN TECHNIQUE: 3 views of each foot was obtained COMPARISON: None. FINDINGS: Normal bone mineralization. Lungs show arch is maintained. No evidence of fracture or radiopaque fore ign body. Joint spaces are maintained IMPRESSION: Unremarkable bilateral foot radiographs Reviewed by: Johny Virgen MD on 08/05/2023 7:11 PM AKST Approved by: Johny Virgen MD on 08/05/2023 7:11 PM AKST Station ID: [id number]
== END 2023-08-05 09:18 | disposition home or self-care (01) ==
LOC: DI 09:17
PROVIDERS: ATTEND Podiatrist
DX: M79.671 Pain in right foot (principal); M79.672 Pain in left foot